=== PATIENT | male | born 1955 | race Caucasian/White ===

== ENCOUNTER 2018-10-31 09:54 | Outpatient (CLI) | payer BC ==
--- NOTE | 2018-10-31 12:13 | MRI ---
MRI CERVICAL SPINE WITHOUT CONTRAST ENHANCEMENT: History: Cervical radiculopathy. Neck pain. M54.12 Technique: Multiplanar, multisequence noncontrast enhanced MRI images were obtained of the cervical s pine. FINDINGS: The spinal cord is unremarkable with no evidence of masses or lesions. C1-2: Unremarkable. C2-3: Unremarkable. C3-4: There is a broad based central disc bulge minimally but not significantly compressing the theca l sac. There is moderate right C3-4 neural foraminal narrowing due to uncal vertebral osteophyte hype rtrophy. The left neural foramen is patent. C4-5: Disc desiccation is seen. There is a broad based central disc protrusion minimally but not sign ificantly compressing the thecal sac. The neural foramen are patent. C5-6: Minimal broad based disc bulge is seen. The central canal is otherwise patent. The neural blanka en are patent. C6-7: Disc desiccation is seen. There is a broad based central disc protrusion compressing the thecal sac resulting in mild to moderate central and lateral recess stenosis. There is mild to moderate venancio ateral neural foraminal narrowing due to uncal vertebral osteophyte hypertrophy. C7-T1: Unremarkable. IMPRESSION: Broad based central disc bulges at C3-4, C4-5, C5-6 and C6-7. POS: [facility]
== END 2018-10-31 09:55 | disposition home or self-care (01) ==
LOC: TBSIIMAG 09:54
PROVIDERS: ATTEND Psychiatry & Neurology Neurology
DX: M50.11 Cervical disc disorder with radiculopathy, high cervical region (principal)
CPT/HCPCS: 72141